=== PATIENT | male | born 1995 | race Caucasian/White ===

== ENCOUNTER 2023-06-28 20:36 | Emergency (ER) | payer OTHER ==
[~2023-06-28] VITALS: Ht 167.6 cm; Wt 68.0 kg
[2023-06-28 20:52] VITALS: BP_SYST 126; PULSE 70; RESP 18; TEMP 98.3; O2SAT 99
[2023-06-28] MEDS ORDERED: OMEP20CA15 PO (22:32)
[2023-06-28] MEDS ORDERED: ONDA-8 TL (22:32)
[2023-06-28] MEDS ORDERED: ACET325T PO (22:32)
== END 2023-06-28 23:25 | disposition home or self-care (01) ==
LOC: SED 20:36
DX: K29.70 Gastritis, unspecified, without bleeding (principal); R10.13 Epigastric pain; R11.0 Nausea; R51.9 Headache, unspecified; E86.0 Dehydration; F10.10 Alcohol abuse, uncomplicated; Z79.899 Other long term (current) drug therapy; Y90.6 Blood alcohol level of 120-199 mg/100 ml
CPT/HCPCS: 99283